=== PATIENT | female | born 1995 ===

== ENCOUNTER 2024-10-24 19:39 | Emergency (ER) | payer OTHER, SELFPAY ==
[2024-10-24 19:43] VITALS: BP 136/94
[2024-10-24 20:08] LABS: % Basophils 0.5 % (0-2); % Eosinophils 1.8 % (0-6); % Lymphocytes 35.1 % (20.5-51.1); % Monocytes 12.7 % (1.7-9.3); % Neutrophils 49.9 % (42.2-75.2); Absolute Eosinophils 0.1 10^3/uL (0-0.7); Absolute Lymphocytes 1.4 10^3/uL (1.2-3.4); Absolute Monocytes 0.5 10^3/uL (0.1-0.6); Hematocrit 38.2 % (37.0-47.0); Hemoglobin 13.1 g/dL (12.0-16.0); Mean Corp Hgb Conc. 34.3 g/dL (33.0-37.0); Mean Corpuscular Hgb 29.5 pg (27.0-31.0); Mean Platelet Volume 9.5 fL (7.4-10.4); Nucleated Red Blood Cells % 0 %; Platelet Count 210 10^3/uL (130-400); Red Blood Cell Count 4.44 10^6/uL (4.20-5.40); Red Cell Dist. Width 12.3 % (11.5-14.5); White Blood Cell Count 3.9 10^3/uL (4.8-10.8)
[2024-10-24 20:19] LABS: HCG, Serum Qualitative Screen Negative
[2024-10-24 20:22] LABS: ALT (SGPT) 41 U/L (0-35); AST (SGOT) 41 U/L (14-36); Albumin 3.9 g/dl (3.5-5.0); Alkaline Phosphatase 69 U/L (38-126); Blood Urea Nitrogen 10 mg/dl (7-17); Calcium 8.6 mg/dl (8.4-10.2); Carbon Dioxide 23 mmol/L (22-30); Chloride 104 mmol/L (98-107); Glucose 105 mg/dl (70-99); Potassium 4.2 mmol/L (3.5-5.1); Sodium 137 mmol/L (135-145); Total Bilirubin 0.3 mg/dl (0.2-1.3); Total Protein 6.4 g/dl (6.3-8.2); eGFR > 60.00
[2024-10-24 20:33] LABS: Troponin I < 0.012 ng/ml
[2024-10-24 23:35] VITALS: BP 115/74
[2024-10-25] VITALS: BP 107/72
--- NOTE | 2024-10-25 00:32 | ED.GENMED ---
History of Present Illness
General
Chief Complaint: Abnormal Lab Value
Source: patient
Exam Limitations: none
Time Seen by Provider: 10/24/24 23:37
History of Present Illness
History of Present Illness:
This is a 29 year old female that comes in with multiple complaints. States that on Saturday she went to a hospital in [place]. States that she awoke form sleep her heart rate was 150. states that this wouldn't go away and she had chest pain and
back pain. states that she was also nauseated. States that her chest pain and back pain has continued. States that she feels weak. Tonight her PCP called her and said to go to the ER as her WBC were low. Patient states that she has abd pain with
nausea, and she feels dizzy like things are moving. Denies any fever, chills, SOB, vomiting, headache, urinary burning.
Past History
Past History
ED Past Medical History: Other (Endometriosis, Glaucoma)
ED Past Surgical History: Gynecological (ovarian cyst)
Social History
Tobacco: Former smoker
Alcohol: None
Personal: Single
Living: alone
Review of Systems
Review of Systems
All Other Systems: ROS reviewed and negative except as documented in HPI and ROS
Constitutional: Reports no symptoms; Denies fever or chills
EENT: Reports no symptoms
Respiratory: Reports no symptoms; Denies cough or trouble breathing
Cardiac: Reports chest pain
ABD/GI: Reports abdominal pain and nausea; Denies vomiting or diarrhea
: Reports no symptoms; Denies dysuria, frequency or urgency
Musculoskeletal: Reports back pain
Skin: Reports no symptoms
Neurological: Reports dizzy; Denies headache
Psychiatric: Reports no symptoms
Phy Exam
General Physical Exam
General Presentation: well appearing and no apparent distress
General age: appears stated age
General Skin: warm and dry
General Habitus: normal
General Mental: alert
General Hydration: appears well hydrated
ENT Exam
ENT Exam: TM's normal, pharynx normal and neck supple
Eye Exam
Eye Exam: EOMI
Cardiovascular Exam
Cardiovascular Exam: regular rate/rhythm, no edema, no murmur and normal peripheral pulses
Pulmonary Exam
Pulmonary Exam: lungs clear, no respiratory distress, no rales, chest non tender, no crackles, no rhonchi, no wheezing and no cough
Gastrointestinal Exam
Gastrointestinal Exam: normal bowel sounds, non tender, soft, no organomegaly, no pulsatile mass and non distended
Musculoskeletal Exam
Musculoskeletal Exam: full ROM and no edema
Skin Exam
Skin Exam: normal color, warm/dry, no rash and no petechia
Course
Orders/Labs/Results
Orders:
Orders
10/24/24 19:46
Electrocardiogram (*1) Urgent
Reason for Study: Chest Pain
Cardiac Monitoring- Treatment ONCE
EKG- Treatment ONCE
IV Insert/Care/Rem.- Treatment PRN
O2 Therapy [RESP] Urgent
Titrate/Wean O2 to maintain O2 sat greater than (%): 90
Special Instructions: Maintain sats >/=90%
Pulse Ox/spot Check [RESP] Urgent
Quantity: 1
Special Instructions: ON ROOM AIR
10/24/24 19:47
Test Result ONCE
10/24/24 19:56
Complete Blood Count/With Diff Urgent
Comprehensive Metabolic Panel Urgent
HCG, Serum Qualitative Screen Urgent
Comment: Notify provider if positive test present
TSH Reflex To Free T4 Urgent
Comment: ADDED
Troponin I Urgent
10/25/24 00:31
CR Chest - 2 Views Urgent
Comment:
Reason For Exam: Chest pain
10/25/24 00:33
Add On- LAB Urgent
Tests Added?: TSH with reflex free T4
10/25/24 00:39
D-Dimer Urgent
Troponin I Urgent
Abnormal Lab Results
10/24/24
19:56
WBC 3.9 L 10^3/uL
(4.8-10.8)
Monocytes % 12.7 H %
(1.7-9.3)
Glucose 105 H mg/dl
(70-99)
AST 41 H U/L
(14-36)
ALT 41 H U/L
(0-35)
10/24/24 19:56
10/24/24 19:56
Leukopenia, Glucose nonfasting. AST/ALT slightly elevated. Troponin <0.012, HCG negative.
Second Troponin <0.012, D-dimer 0.34
Vital Signs
Initial and Last Documented VS:
Initial Vital Signs
Temp Pulse Resp BP Pulse Ox
98.0 F 108 19 136/94 98
10/24/24 19:43 10/24/24 19:43 10/24/24 19:43 10/24/24 19:43 10/24/24 19:43
Last Documented Vital Signs
Temp Pulse Resp BP Pulse Ox
98.0 F 70 19 107/72 99
10/24/24 19:43 10/25/24 00:30 10/25/24 00:30 10/25/24 00:00 10/25/24 00:30
MDM/Problems Addressed
Differential Diagnosis Includes:
Viral syndrome,
MDM/Problems Addressed:
This is a 29 year old female that comes in with multiple complaints. States that she has chest pain and back pain that has not gone away since Saturday. States that she awoke with a HR of 150. States that she was seen in the ER in [place].
Will check labs, Chest x-ray.
back into see patient. Explained that her WBC have come up since her Labs on Saturday. Explained that this can happen with a viral illness and the liver enzymes can also go up a little. chest x-ray is normal and her D-dimer is negative. Encouraged
patient to increase her water intake to 8-8oz glasses daily. Follow up with the family doctor. Return with any concerns.
Chronic conditions affecting care:
NA
Acute Exacerbation and/or Progression of Chronic Illness:
NA
*Radiology
Radiology exam reviewed: preliminary read by ED provider (Chest- Negative for active disease. )
*Pulse Oximetry
Patient hypoxic: no
*EKG
Interpreted by ED Provider?: Yes
Heart Rate: 79
Rate: normal
Rhythm: sinus arrhythmia
[place]: normal axis
Interval: normal interval
QRS Pattern: normal QRS
Ischemia: no ischemia
*Water Pollution Scientist Interpretation
Rate: normal
Heart Rate: 91
Rhythm: sinus
*Critical Care Note
Total Time (30-74mins, 75-104mins- exclusive of procedures): Not Applicable
ED Attending Note
-
Portions of this chart may have been created with voice recognition software.� Occasional wrong word or��sound alike� substitutions may have occurred due to the inherent limitations of voice recognition software.
Discharge Plan
Departure
Patient Disposition: Home (Routine Discharge)
Date of Disposition: 10/25/24
Time of Disposition: 02:00
Patient with high blood pressure during this ER visit?: No
Condition: Good
Covid-19: Not Applicable
Discharge Problem:
Chest pain, Back pain
Instructions: Back Pain, Chest Pain PCP Follow Up
Referrals:
UNKNOWN - PT DOES,NOT KNOW [Family Provider] -
Activity Restrictions/Additional Instructions:
As discussed, your chest x-ray is normal. Your both Troponin's which are specific for the heart is normal. Your D-dimer is negative. Please follow up with the family doctor for recheck. Please increase your water intake to 8-8oz glasses daily. IF
YOU HAVE INCREASED OR CHANGING PAIN, OR YOU HAVE ANY OTHER CONCERNS PLEASE RETURN TO THE EMERGENCY ROOM
Interventions
Interventions:
*Risk Screen - Suicide Last Done: 10/24/24 19:43
*Neglect/Abuse Screening Last Done: 10/24/24 19:43
Discharge Date and Time
Print Language: MALDIVIAN
[2024-10-25 01:07] LABS: Troponin I < 0.012 ng/ml
[2024-10-25 01:19] LABS: D-Dimer 0.34 ug/mlFEU (0.00-0.50)
[2024-10-25 02:06] VITALS: BP 114/71
[2024-10-25 02:28] LABS: TSH Reflex To Free T4 0.92 uIU/ml (0.47-4.68)
== END 2024-10-25 02:09 | disposition home or self-care (01) ==
LOC: EMR 19:39
PROVIDERS: Clinical Nurse Specialist Family Health; EMERGENCY PHYSICIAN Emergency Medicine
DX: R07.89 Other chest pain (principal); M54.9 Dorsalgia, unspecified; D72.819 Decreased white blood cell count, unspecified; H40.9 Unspecified glaucoma; N80.9 Endometriosis, unspecified; Z87.891 Personal history of nicotine dependence
CPT/HCPCS: 99283; 71046; 80053; 84443; 84484; 84703; 85025; 85379; 93005